=== PATIENT | male | born 1950 | race African-American/Black ===

== ENCOUNTER 2017-02-05 14:38 | Emergency (ER) | payer OTHER ==
[~2017-02-05] VITALS: Ht 175.3 cm; Wt 105.0 kg
[~2017-02-05 14:38] MED LIST: DIPH1TAB36
[2017-02-05 14:40] VITALS: BP 137/94; PULSE 88; RESP 18; TEMP 98; O2SAT 99
--- NOTE | 2017-02-05 17:26 | PD ---
HPI Chief Complaint: Respiratory Symptoms Time Seen by Provider: 17:13 Travel History International Travel<30 days: No Contact w/Intl Traveler<30days: No Traveled to known affect area: No History of Present Illness HPI 66-year-old male complains of persistent cough. Patient states that the cough started 6 weeks ago. Patient was seen at local [place] clinic about 6 weeks ago and given erythromycin for 6 day without relief of the cough. Patient denies any headache. Patient denies any earache. Patient states that he has mild sore throat. Patient states that the cough is productive and persistent. Patient denies any fever chills. Patient states that he has chest wall pain with coughing. Patient states that he has mild diarrhea recently. Patient denies any abdominal pain. Patient denies any nausea vomiting. Patient has history of multiple myeloma status post stem cell transplant in the past. Patient has history of diabetes and dyslipidemia. Patient's on metformin and statin. Patient denies a history asthma or COPD. Patient stopped smoking many years ago. [facility] Social History Alcohol Use: Yes (EVERY NOW AND THEN) Tobacco Use: No (QUIT 18 MO AGO) Allergies-Medications (Allergen,Severity, Reaction): Coded Allergies: Aspirin (Verified Adverse Reaction, Mild, UPSET STOMACH, 02/05/17) Reported Meds & Prescriptions Reported Meds & Active Scripts Active Reported Metformin (Metformin HCl) 500 Mg Tab 500 Mg PO DAILY With a meal Review of Systems General / Constitutional: No: Fever Eyes: No: Visual changes HENT: No: Headaches Cardiovascular: No: Chest Pain or Discomfort Respiratory: Positive: Cough, No: Shortness of Breath Gastrointestinal: No: Abdominal Pain Genitourinary: No: Dysuria Musculoskeletal: No: Pain Skin: No Rash Neurologic: No: Weakness Psychiatric: No: Depression Endocrine: No: Polydipsia Hematologic/Lymphatic: No: Easy Bruising Physical Exam Narrative GENERAL: Well-nourished, well-developed patient. SKIN: Focused skin assessment warm/dry. HEAD: Normocephalic. EYES: No scleral icterus. No injection or drainage. NECK: Supple, trachea midline. No JVD or lymphadenopathy. CARDIOVASCULAR: Regular rate and rhythm without murmurs, gallops, or rubs. RESPIRATORY: Breath sounds equal bilaterally. No accessory muscle use. GASTROINTESTINAL: Abdomen soft, non-tender, nondistended. MUSCULOSKELETAL: No cyanosis, or edema. BACK: Nontender without obvious deformity. No CVA tenderness. Neurologic exam normal. Data Data Last Documented VS Vital Signs Date Time Temp Pulse Resp B/P Pulse Ox O2 Delivery O2 Flow Rate FiO2 02/05/17 17:37 84 18 98 Room Air 02/05/17 14:40 98.0 137/94 Orders Chest, Pa & Lat (02/05/17 17:23) MDM Medical Decision Making Medical Screen Exam Complete: Yes Emergency Medical Condition: Yes Interpretation(s) 1803 p.m. Chest x-ray shows no acute consolidation. Differential Diagnosis Differential diagnosis including URI, bronchitis, pneumonia, reactive airway disease. Narrative Course 66-year-old male with persistent productive cough. Diagnosis Primary Impression: Bronchitis Patient Instructions: General Instructions Med/Other Pt SpecificInfo: Prescription(s) given Scripts [Phenergan W Codein] No Conflict Check10 Ml PO Q6HR #120 Prov:Rudi Duran MD 02/05/17 Azithromycin (Zithromax Z-Daniel)250 Mg [id number] Mg PO DIRECTED #1 DSPK 500 MG (2 tabs) day 1, then 1 tab days 2-5. Prov:Rudi Duran MD 02/05/17 Disposition: 01 DISCHARGE HOME Condition: Stable Rudi Duran MD Feb 05, 2017 17:26
[2017-02-05] MEDS ORDERED: METF500T PO (17:39)
--- NOTE | 2017-02-05 17:58 | RADRPT ---
EXAM DATE/TIME: 02/05/2017 17:54 [facility] COMPARISON: No previous studies available for comparison. INDICATIONS : Chest pain and cough. MEDICAL HISTORY : History of multiple myloma. SURGICAL HISTORY : Infusaport removed. ENCOUNTER: Initial ACUITY: 4 - 6 months PAIN SCORE: 6/10 LOCATION: Bilateral upper chest FINDINGS: PA and lateral views of the chest demonstrate the lungs to be symmetrically aerated without evidence of mass, infiltrate or effusion. The cardiomediastinal contours are unremarkable. Osseous structure s are intact. CONCLUSION: No acute disease. Demetris Good MD FACR on February 05, 2017 at 17:56 Board Certified Radiologist. This report was verified electronically.
[2017-02-05] MEDS ORDERED: PHENERGAN W CODEIN PO (18:08)
[2017-02-05] MEDS ORDERED: ZITHTAB PO (18:08)
[2017-02-05 18:40] VITALS: BP 130/76; TEMP 97.8
== END 2017-02-05 18:40 | disposition home or self-care (01) ==
LOC: NEPE 14:38
DX: J40 Bronchitis, not specified as acute or chronic (principal); R19.7 Diarrhea, unspecified; E11.9 Type 2 diabetes mellitus without complications; E78.5 Hyperlipidemia, unspecified; Z79.84 Long term (current) use of oral hypoglycemic drugs; Z87.891 Personal history of nicotine dependence; Z85.79 Personal history of other malignant neoplasms of lymphoid, hematopoietic and related tissues
CPT/HCPCS: 71020; 99283